=== PATIENT | male | born 1980 | race Two or more races ===

== ENCOUNTER 2024-01-02 23:17 | Emergency (ER) | payer BC ==
[2024-01-02 23:23] VITALS: RESP 18; TEMP 97.6; BMI 26.2
[2024-01-03] MEDS ORDERED: ACETAMINOPHEN 325 MG TABLET (FP) ONE (00:19)
[2024-01-03] MEDS ORDERED: LIDOCAINE 4% PATCH TP ONE (00:19)
[2024-01-03] MEDS: ACETAMINOPHEN 325 MG TABLET (FP) PO ONE (00:27)
[2024-01-03] MEDS: LIDOCAINE 5% TOPICAL PATCH TP ONE (00:27)
[2024-01-03 01:03] LABS: URINE APPEARANCE CLEAR; URINE BILIRUBIN NEGATIVE (NEGATIVE); URINE COLOR YELLOW; URINE GLUCOSE (UA) NEGATIVE (NEGATIVE); URINE KETONE NEGATIVE (NEGATIVE); URINE LEUK ESTERASE NEGATIVE (NEGATIVE); URINE NITRITE NEGATIVE (NEGATIVE); URINE PROTEIN NEGATIVE (NEGATIVE); URINE UROBILINOGEN 0.2 mg/dL (0.2-1.0)
[2024-01-03 01:16] VITALS: BP 115/84; PULSE 103
[2024-01-03] MEDS ORDERED: LIDOCAINE PATCH REMOVAL MC ONE (13:00)
== END 2024-01-03 01:58 | disposition home or self-care (01) ==
LOC: JER 23:17
DX: M54.89 Other dorsalgia (principal)
CPT/HCPCS: 81003; 99283-25